=== PATIENT | female | born 1995 | race Caucasian/White ===

== ENCOUNTER 2020-10-17 11:34 | Emergency (ER) | payer OTHER ==
[~2020-10-17] VITALS: Ht 157.5 cm; Wt 68.0 kg
[2020-10-17 11:39] VITALS: BP 124/84; Ht 157.5 cm; Wt 68.0 kg
== END 2020-10-17 12:11 | disposition other institution (70) ==
LOC: ED 11:34
DX: Z02.89 Encounter for other administrative examinations (principal)